=== PATIENT | female | born 2000 | race Two or more races ===

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

== ENCOUNTER 2024-10-04 08:12 | Emergency (ER) | payer OTHER ==
[~2024-10-04] VITALS: Ht 162.6 cm; Wt 68.0 kg
[~2024-10-04 08:12] MED LIST: AMOX1TAB5 PO; AUGMENTIN XR 11 EACH PO; FLAGYL375 MG; ONDANSETRON ODT4 MG PO
[2024-10-04 08:33] VITALS: BP 107/75; O2SAT 99
[2024-10-04] MEDS ORDERED: KETOROLAC TROMETHAMINE 60 MG VIAL IM STA (09:30)
[2024-10-04 10:19] LABS: HEMATOCRIT 35.1 % (36.0-45.00); HEMOGLOBIN 11.5 g/dL (12.0-15.00); MEAN CELL VOLUME 74.3 fL (80.00-100.00); MEAN CORPUSCULAR HEMOGLOBIN 24.4 pg (27.00-32.0); MEAN CORPUSCULAR HGB CONC 32.9 g/dl (32.0-36.0); PLATELET COUNT 318 K/uL (150-450); RED BLOOD COUNT 4.72 M/uL (4.00-6.00); RED CELL DISTRIBUTION WIDTH 15.5 % (11.5-14.5)
== END 2024-10-04 10:46 | disposition home or self-care (01) ==
LOC: ER 08:15
PROVIDERS: General Practice
DX: R51.9 Headache, unspecified (principal); Z91.018 Allergy to other foods; J32.9 Chronic sinusitis, unspecified
CPT/HCPCS: 36415; 70210; 70450; 96372; 99284; J1885